=== PATIENT | female | born 1995 | race Caucasian/White ===

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

== ENCOUNTER 2020-10-19 12:30 | Emergency (ER) | payer SELFPAY | END 2020-10-19 13:50 | disposition home or self-care (01) | LOC: MADERS 12:30 | DX: G43.909 Migraine, unspecified, not intractable, without status migrainosus (principal); K50.90 Crohn's disease, unspecified, without complications | CPT/HCPCS: 99283 ==

== ENCOUNTER 2021-03-31 17:48 | Emergency (ER) | payer MEDICAID, SELFPAY | END 2021-03-31 20:14 | disposition home or self-care (01) | LOC: MADERS 17:48 | DX: J06.9 Acute upper respiratory infection, unspecified (principal); K21.9 Gastro-esophageal reflux disease without esophagitis; G43.909 Migraine, unspecified, not intractable, without status migrainosus | CPT/HCPCS: 71046; 93005 ==

== ENCOUNTER 2021-04-04 16:13 | Emergency (ER) | payer SELFPAY ==
[2021-04-04 17:20] LABS: #Basophils 0.1 thou/uL (0.0-0.2); #Lymphocytes 1.6 thou/uL (1.20-3.40); #Monocytes 1.1 thou/uL (0.11-0.59); #Neutrophils 16.6 thou/uL (1.40-6.50); %Basophils 0.8 % (0.0-1.0); %Lymphocytes 8.2 % (21.0-51.0); %Monocytes 5.7 % (0.0-10.0); %Neutrophils 85.4 % (42.0-75.0); Hemoglobin 14.9 g/dL (12.0-16.0); Mean Corpuscular HGB CONC 32.4 g/dL (32.0-36.0); Mean Corpuscular Hemoglobin 28.7 pg (27.0-31.0); Mean Corpuscular Volume 88.8 fL (78.0-98.0); Mean Platelet Volume 5.8 fL (7.4-10.4); Platelet Count 267 thou/uL (130-400); RBC Distribution Width 11.4 % (11.5-14.5); Red Blood Cell (RBC) Count 5.18 mill/uL (4.20-5.40); White Blood Cell (WBC) Count 19.5 thou/uL (4.8-10.8)
[2021-04-04 17:26] LABS: BHCG - Serum Negative (NEGATIVE); Pregs Control Background? CLEAR/WHITE (CLR/WHITE); Pregs Control Bar Appear? YES (CONTROL BAR)
[2021-04-04 17:31] LABS: ALT (SGPT) 22 U/L (8-55); AST (SGOT) 28 U/L (5-34); Albumin 4.9 g/dL (3.5-5.0); Alkaline Phosphatase 70 U/L (40-110); Anion Gap 18 mmol/L (10-20); BUN (Urea Nitrogen) 12 mg/dL (7.0-18.7); Bilirubin, Total 0.7 mg/dL (0.2-1.2); CK (CPK) 245 U/L (29-168); CRP (Inflammatory) 15.31 mg/dL (= or < 0.5); Calc. Creatinine Clearance 0 mL/min (70-130); Calcium 9.6 mg/dL (7.8-10.44); Carbon Dioxide 22 mmol/L (22-29); Chloride 101 mmol/L (98-107); Globulin 3.7 g/dL (2.4-3.5); Glucose 114 mg/dL (70-105); Potassium 3.5 mmol/L (3.5-5.1); Protein, Total 8.6 g/dL (6.0-8.3); Sodium 137 mmol/L (136-145)
[2021-04-04] MEDS ORDERED: Ibuprofen 600 MG TAB ONE (17:37)
[2021-04-05 16:13] LABS: SARS-CoV-2 PCR by NAA Not Detected (NotDetected)
== END 2021-04-04 18:35 | disposition home or self-care (01) ==
LOC: MADERS 16:13
DX: R09.1 Pleurisy (principal); B34.9 Viral infection, unspecified; Z20.822 Contact with and (suspected) exposure to COVID-19; K21.9 Gastro-esophageal reflux disease without esophagitis; G43.909 Migraine, unspecified, not intractable, without status migrainosus
CPT/HCPCS: 71046; 80053; 82550; 84484; 84703; 85025; 86140; 93005; 94760; U0003; U0005

== ENCOUNTER 2021-04-08 07:17 | Emergency (ER) | payer MEDICAID ==
[2021-04-08] MEDS ORDERED: Sodium Chloride 0.9% 1,000 ML ONE (07:43)
[2021-04-08] MEDS ORDERED: Ketorolac Tromethamine 30 MG/ML VIAL ONE (07:43)
[2021-04-08] MEDS ORDERED: Ondansetron PF 4 MG/2 ML Vial ONE (07:43)
[2021-04-08 08:09] LABS: #Basophils 0.1 thou/uL (0.0-0.2); #Lymphocytes 1.1 thou/uL (1.20-3.40); #Monocytes 1.1 thou/uL (0.11-0.59); #Neutrophils 14.5 thou/uL (1.40-6.50); %Basophils 0.7 % (0.0-1.0); %Lymphocytes 6.5 % (21.0-51.0); %Monocytes 6.5 % (0.0-10.0); %Neutrophils 86.3 % (42.0-75.0); Hemoglobin 12.9 g/dL (12.0-16.0); Mean Corpuscular HGB CONC 33.1 g/dL (32.0-36.0); Mean Corpuscular Volume 87.4 fL (78.0-98.0); Mean Platelet Volume 5.6 fL (7.4-10.4); Platelet Count 289 thou/uL (130-400); RBC Distribution Width 11.5 % (11.5-14.5); Red Blood Cell (RBC) Count 4.45 mill/uL (4.20-5.40); White Blood Cell (WBC) Count 16.7 thou/uL (4.8-10.8)
[2021-04-08] MEDS ORDERED: methylPREDNISolone Sod Succ/PF 125 MG/2 ML VIAL ONE (08:09)
[2021-04-08 08:16] LABS: BHCG - Serum Negative (NEGATIVE); Pregs Control Background? CLEAR/WHITE (CLR/WHITE); Pregs Control Bar Appear? YES (CONTROL BAR)
[2021-04-08 08:20] LABS: ALT (SGPT) 32 U/L (8-55); AST (SGOT) 21 U/L (5-34); Albumin 3.9 g/dL (3.5-5.0); Alkaline Phosphatase 92 U/L (40-110); Anion Gap 18 mmol/L (10-20); BUN (Urea Nitrogen) 7 mg/dL (7.0-18.7); Bilirubin, Total 0.4 mg/dL (0.2-1.2); Calc. Creatinine Clearance 0 mL/min (70-130); Calcium 9.3 mg/dL (7.8-10.44); Carbon Dioxide 19 mmol/L (22-29); Chloride 101 mmol/L (98-107); Globulin 3.8 g/dL (2.4-3.5); Glucose 150 mg/dL (70-105); Magnesium 1.4 mg/dL (1.6-2.6); Protein, Total 7.7 g/dL (6.0-8.3); Sodium 135 mmol/L (136-145)
[2021-04-08 08:31] LABS: Potassium 2.7 mmol/L (3.5-5.1)
[2021-04-08 08:43] LABS: Base Excess-Venous 0.2 mmol/L (-2.0 to 3.0); Bicarbonate (HCO3v) 22.2 mmol/L (22.0-28.0); CO2 Tension (PvCO2) 28.6 mmHg (42.0-51.0); Calcium, Ionized 1.07 mmol/L (1.15-1.33); Chloride 102 mmol/L (98-107); Hemoglobin - Calc 14.7 g/dL (12.0-16.0); Sodium 138 mmol/L (138-145); T. Carbon Dioxide 23.1 mmol/L (22.0-28.0); vO2 Saturation-calc 74.7 % (60.0-85.0)
[2021-04-08] MEDS ORDERED: cefTRIAXone\\ROCEPHIN 1 GM VIAL ONE (08:51)
[2021-04-08] MEDS ORDERED: Acetaminophen 500 MG TAB ONE (08:51)
[2021-04-08] MEDS ORDERED: NS 0.9% w/ 20 MEQ KCL 1,000 ML ONE (08:51)
[2021-04-08] MEDS ORDERED: Azithromycin 500 MG VIAL ONE (08:51)
[2021-04-08] MEDS ORDERED: Sodium Chloride 0.9% 100 ML ONE (08:51)
[2021-04-08] MEDS ORDERED: Sodium Chloride 0.9% 250 ML 250 ML ONE (08:51)
== END 2021-04-08 10:38 | disposition short-term general hospital (02) ==
LOC: MADERS 07:17
DX: J18.9 Pneumonia, unspecified organism (principal); K21.9 Gastro-esophageal reflux disease without esophagitis; G43.909 Migraine, unspecified, not intractable, without status migrainosus
CPT/HCPCS: 36415; 71045; 80053; 82330; 82803; 83605; 83735; 84484; 84703; 85025; 87040; 87804; 93005; 96365; 96367; 96375; J0456; J0696; J1885; J2405; J2930; J3480; J3490; J7050; J7620

== ENCOUNTER 2021-06-29 20:35 | Emergency (ER) | payer OTHER ==
[2021-06-29] MEDS ORDERED: Ondansetron ODT 4 MG TAB ONE (22:03)
== END 2021-06-29 22:14 | disposition home or self-care (01) ==
LOC: MADERS 20:35
DX: J02.9 Acute pharyngitis, unspecified (principal); R11.0 Nausea; R10.84 Generalized abdominal pain; M79.10 Myalgia, unspecified site; R19.7 Diarrhea, unspecified; G43.909 Migraine, unspecified, not intractable, without status migrainosus; K21.9 Gastro-esophageal reflux disease without esophagitis; F17.290 Nicotine dependence, other tobacco product, uncomplicated
CPT/HCPCS: 99283; Q0162

== ENCOUNTER 2023-04-13 14:48 | Emergency (ER) | payer SELFPAY, OTHER | END 2023-04-13 17:32 | disposition home or self-care (01) | LOC: MADERS 14:48 | DX: U07.1 COVID-19 (principal); F17.290 Nicotine dependence, other tobacco product, uncomplicated | CPT/HCPCS: 87635; 87804; 99283 ==